=== PATIENT | female | born 1965 | race Caucasian/White ===

== ENCOUNTER 2019-06-22 13:38 | Emergency (ER) | payer OTHER ==
[~2019-06-22] VITALS: Ht 167.6 cm; Wt 89.8 kg
[~2019-06-22 13:38] MED LIST: CYCLOBENZAPRINE10 MG PO; IBUPROFEN600 MG PO; MOTRIN IB200 MG PO; VICODIN 5-3001 EACH PO
--- OUTSIDE RECORDS SUMMARY | 2019-06-22 13:40 | XMS ---
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 [place] has no Care Guidelines for this patient. [place] VISIT COUNT (12 MO.) 1 WILL [facility] TOTAL 1 NOTE: Visits indicate total known visits. ED/C VISIT TRACKING (12 MO.) 06/22/2019 13:38 [facility] [place] TYPE: Emergency COMPLAINT: - BACK PAIN INPATIENT VISIT TRACKING (12 MO.) No inpatient visits to display in this time frame [email or web address]
--- NOTE | 2019-06-22 23:03 | EKG ---
[facility] [address] [place] [address] Signed Normal sinus rhythm Normal ECG When compared with ECG of 28-MAY-2016 18:26, Criteria for Septal infarct are no longer present Confirmed by SHAHRZAD MITCHELL MD ([id number]) on 06/22/2019 11:03:06 PM Electronically Signed By: SHAHRZAD MITCHELL MD 06/22/19 2303 PATIENT NAME: AIMEE SILVERMAN Electrocardiogram DATE OF : 63 PHYSICIAN: SHAHRZAD MITCHELL MD REPORT #: [id number] REPORT IS CONFIDENTIAL AND NOT TO BE RELEASED WITHOUT AUTHORIZATION
== END 2019-06-22 16:00 | disposition home or self-care (01) ==
LOC: ED 13:38
DX: R07.89 Other chest pain (principal); F17.200 Nicotine dependence, unspecified, uncomplicated; Z88.2 Allergy status to sulfonamides; Z88.1 Allergy status to other antibiotic agents
CPT/HCPCS: 71046; 93005; 93010; 96372; 99285-25; 99406; J1885